=== PATIENT | female | born 1965 | race Two or more races ===

== ENCOUNTER 2024-07-29 05:00 | Day surgery (SDC) | payer OTHER ==
[~2024-07-29 05:00] MED LIST: DAFLONEX; GLUCOTROL XL5 MG; PEPCID; PRILOSEC 40MG; RESTORIL30 MG
[2024-07-29] MEDS ORDERED: CEFTRIAXONE SODIUM 2,000 MG VIAL ONE (06:51)
[2024-07-29] MEDS ORDERED: METRONIDAZOLE/SODIUM CHLORIDE 500 MG/100 ML PIGGYBACK IV ONE (06:51)
[2024-07-29] MEDS ORDERED: BUPIVACAINE HCL/MPF 0.5% 30ML VIAL ONE (07:33)
[2024-07-29] MEDS ORDERED: DIBUCAINE 30 GM TUBE ONE (07:33)
[2024-07-29] MEDS ORDERED: POVIDONE-IODINE 118 ML BOTT TOP ONE (07:33)
[2024-07-29] MEDS ORDERED: BUPIVACAINE LIPOSOME/PF 266 MG/20 ML VIAL IJ ONE (07:34)
[2024-07-29] MEDS ORDERED: HEMOSTATIC MATRIX 1 KIT KIT TOP ONE (07:34)
[2024-07-29] MEDS ORDERED: TAMSULOSIN HCL 0.4 MG CAP PO ONE ×2 (08:45→10:57)
[2024-07-29] MEDS ORDERED: OXYCODONE HCL5 MG PO (08:49)
[2024-07-29] MEDS ORDERED: MORPHINE SULFATE 4 MG/ML VIAL IV ONE (10:55)
== END 2024-07-29 14:50 | disposition home or self-care (01) ==
LOC: CIR.AMB 05:00
PROVIDERS: ATTEND Surgery
DX: K64.8 Other hemorrhoids (principal); K64.4 Residual hemorrhoidal skin tags; K62.89 Other specified diseases of anus and rectum; K62.5 Hemorrhage of anus and rectum; Z88.6 Allergy status to analgesic agent